=== PATIENT | male | born 1955 | race Caucasian/White ===

== ENCOUNTER 2017-07-16 09:45 | Emergency (ER) | payer OTHER ==
--- NOTE | 2017-07-16 10:20 | EDPHY ---
H & P Time Seen by Provider: 07/16/17 10:08 HPI/ROS: CHIEF COMPLAINT: Abdominal pain HISTORY OF PRESENT ILLNESS: 62-year-old male presents to the emergency department with left lower quadrant abdominal pain that began yesterday morning. Pain has been constant and now getting worse. He has vomited. Pain is in his left lower quadrant. He has never had this in the past. No flank pain. No chest pain or difficulty breathing. No vomiting. No diarrhea. No fevers or chills. No urinary symptoms. He has had a colonoscopy however he is unaware if he has had diverticular disease. No known kidney stones. Small bowel movement this morning. No melena or blood. REVIEW OF SYSTEMS: Constitutional: No fever, no chills. Eyes: No double or blurry vision. ENT: No sore throat. Respiratory: No cough, no shortness of breath. Cardiac: No chest pain. Gastrointestinal: Abdominal pain as above. Vomiting. No diarrhea. Genitourinary: No dysuria. Musculoskeletal: No neck or back pain. Skin: No rashes. Neurological: No headache. Past Medical/Surgical History: Negative Social History: Single and lives in [place] Smoking Status: Never smoked Physical Exam: General Appearance: Alert, no distress. Afebrile. No apparent distress. Eyes: Pupils equal and round. Extraocular motions are all intact. ENT: Mouth: Mucous membranes moist. Respiratory: No wheezing, rhonchi, or rales, lungs are clear to auscultation. Cardiovascular: Regular rate and rhythm. Gastrointestinal: Abdomen is soft. Tenderness with palpation in the left lower quadrant. There is no masses, rebound or guarding noted. No CVA tenderness bilaterally. Neurological: Alert and oriented x 3, cranial nerves II through XII grossly intact Skin: Warm and dry, no rashes. Musculoskeletal: Nontender to palpate along the cervical, thoracic or lumbar spine. Neck is supple. Extremities: Full range of motion and no peripheral edema. Psychiatric: Patient is oriented X 3, there is no agitation. Constitutional: Initial Vital Signs Temperature (C) 36.8 C 07/16/17 09:48 Heart Rate 62 07/16/17 09:48 Respiratory Rate 20 07/16/17 09:48 Blood Pressure 164/90 H 07/16/17 09:48 O2 Sat (%) 100 07/16/17 09:48 O2 Delivery Mode Room Air Allergies/Adverse Reactions: No Known Allergies Allergy (Verified 07/16/17 09:47) Home Medications: Medication Instructions Recorded No Medications [NO HOME 1 ea [facility] [place]12 MEDICATIONS] Tamsulosin HCl [Flomax] 0.4 mg PO DAILY #10 cap 07/16/17 Medical Decision Making - Diagnostics Imaging Results: Imaging Impressions Abdomen CT 07/16/17 10:38 Impression: 1. Suspect recently passed left ureteral calculus evidenced by minimal stranding along the proximal left ureter and minimal left pelvocaliectasis. 2. Diverticulosis of the descending and sigmoid colon. No acute diverticulitis. 3. Cholelithiasis. No biliary dilation, common bile duct stone, or pancreatitis. 4. Hepatic steatosis. Findings discussed with Emergency Department physician registered nurse first assistant, Stephanie Bullard , on July 16, 2017 at 11:20 a.m. Imaging: Discussed imaging studies w/ scallop binder Radiologist ED Course/Re-evaluation: 62-year-old male presents with left lower quadrant abdominal pain. I was concerned about possible diverticulitis. Patient has 8/10 pain, however he does not have a independent driver therefore does not want pain medication currently. CT imaging of the abdomen and pelvis reveals diverticulosis without evidence of diverticulitis. He does have mild to moderate hydronephrosis noted around the left kidney consistent with likely having just passed a kidney stone. Urinalysis was finally obtained which revealed large blood, 10-15 white blood cells and some mucus. Urine cultures pending. The patient was feeling better upon discharge. He was treated with IV Toradol as well as IV normal saline and oral Flomax. He will be discharged with oral Flomax with referral to the on-call urologist. He was instructed to follow up as an outpatient and return sooner if he felt worse in any way. Differential Diagnosis: Including but not limited to diverticulitis, bowel obstruction, kidney stone, pyelonephritis, urinary tract infection, acute appendicitis - Data Points Laboratory Results: Laboratory Results 07/16/17 10:10 07/16/17 10:10 07/16/17 07/16/17 07/16/17 11:10 10:10 10:10 WBC 11.02 10^3/uL H 10^3/uL (3.80-9.50) RBC 5.36 10^6/uL 10^6/uL (4.40-6.38) Hgb 16.8 g/dL g/dL (13.7-17.5) Hct 46.6 % % (40.0-51.0) MCV 86.9 fL fL (81.5-99.8) MCH 31.3 pg pg (27.9-34.1) MCHC 36.1 g/dL g/dL (32.4-36.7) RDW 12.4 % % (11.5-15.2) Plt Count 207 10^3/uL 10^3/uL (150-400) MPV 9.4 fL fL (8.7-11.7) Neut % (Auto) 75.7 % H % (39.3-74.2) Lymph % (Auto) 15.8 % % (15.0-45.0) [place] % (Auto) 7.0 % % (4.5-13.0) Eos % (Auto) 0.5 % L % (0.6-7.6) Baso % (Auto) 0.6 % % (0.3-1.7) Nucleat RBC Rel Count 0.0 % % (0.0-0.2) Absolute Neuts (auto) 8.35 10^3/uL H 10^3/uL (1.70-6.50) Absolute Lymphs (auto) 1.74 10^3/uL 10^3/uL (1.00-3.00) Absolute Monos (auto) 0.77 10^3/uL 10^3/uL (0.30-0.80) Absolute Eos (auto) 0.05 10^3/uL 10^3/uL (0.03-0.40) Absolute Basos (auto) 0.07 10^3/uL 10^3/uL (0.02-0.10) Absolute Nucleated RBC 0.00 10^3/uL 10^3/uL (0-0.01) Immature Gran % 0.4 % % (0.0-1.1) Immature Gran # 0.04 10^3/uL 10^3/uL (0.00-0.10) Sodium 142 mEq/L mEq/L (134-144) Potassium 3.8 mEq/L mEq/L (3.5-5.2) Chloride 106 mEq/L mEq/L (97-110) Carbon Dioxide 24 mEq/l mEq/l (22-31) Anion Gap 12 mEq/L mEq/L (8-16) BUN 15 mg/dL mg/dL (7-23) Creatinine 0.9 mg/dL mg/dL (0.7-1.3) Estimated GFR > 60 Glucose 110 mg/dL H mg/dL (70-100) Calcium 9.9 mg/dL mg/dL (8.5-10.4) Urine Color YELLOW Urine Appearance HAZY Urine pH 5.0 (5.0-7.5) Ur Specific [place] 1.025 (1.002-1.030) Urine Protein 2+ H (NEGATIVE) Urine Ketones TRACE H (NEGATIVE) Urine Blood 3+ H (NEGATIVE) Urine Nitrate NEGATIVE (NEGATIVE) Urine Bilirubin NEGATIVE (NEGATIVE) Urine Urobilinogen NEGATIVE EU EU (0.2-1.0) Ur Leukocyte Esterase 1+ H (NEGATIVE) Urine RBC 25-50 /hpf H /hpf (0-3) Urine WBC 15-25 /hpf H /hpf (0-3) Ur Epithelial Cells NONE SEEN /lpf /lpf (NONE-1+) Urine Mucus 2+ /lpf H /lpf (NONE-1+) Urine Glucose NEGATIVE (NEGATIVE) Medications Given: Discontinued Medications Sodium Chloride (Ns) 1,000 mls @ 0 mls/hr IV ONCE ONE PRN Reason: Wide Open Stop: 07/16/17 11:19 Last Admin: 07/16/17 11:25 Dose: 1,000 mls Ketorolac Tromethamine (Toradol) 30 mg IVP EDNOW ONE Stop: 07/16/17 11:19 Last Admin: 07/16/17 11:25 Dose: 30 mg Departure - Departure Disposition: Home, Routine, Self-Care Clinical Impression: Kidney stone on left side Condition: Good Instructions: Tamsulosin (By mouth), Kidney Stones (ED), Renal Colic (ED), How to Strain Your Urine (ED) Additional Instructions: Flomax daily until stone passes. Strainer urine. Return to the emergency department if you developed fever, difficulty urinating, or if you feel worse in any way. Referrals: Ishan Perez MD [Medical Doctor] - As per Instructions Prescriptions: Tamsulosin HCl [Flomax] 0.4 mg PO DAILY #10 cap
[2017-07-16 10:22] LABS: % IMMATURE GRANULYOCYTES 0.4 % (0.0-1.1); ABSOLUTE IMMATURE GRANULOCYTES 0.04 10^3/uL (0.00-0.10); ADD DIFF? NO; ADD MORPH? NO; ADD SCAN? NO; ATYPICAL LYMPHOCYTE FLAG 0 (0-99); FRAGMENT RBC FLAG 0 (0-99); HEMATOCRIT 46.6 % (40.0-51.0); HEMOGLOBIN 16.8 g/dL (13.7-17.5); LEFT SHIFT FLG 0 (0-99); LIPEMIA HEMOLYSIS FLAG 90 (0-99); MEAN CELL HEMOGLOBIN 31.3 pg (27.9-34.1); MEAN CELL HEMOGLOBIN CONCENTR. 36.1 g/dL (32.4-36.7); MEAN CELL VOLUME 86.9 fL (81.5-99.8); MEAN PLATELET VOLUME 9.4 fL (8.7-11.7); PLATELET CLUMPS FLAG 0 (0-99); PLATELET COUNT 207 10^3/uL (150-400); RED BLOOD CELL COUNT 5.36 10^6/uL (4.40-6.38); RED CELL DISTRIBUTION WIDTH 12.4 % (11.5-15.2)
[2017-07-16 10:32] LABS: ANION GAP 12 mEq/L (8-16); CALCIUM 9.9 mg/dL (8.5-10.4); CARBON DIOXIDE 24 mEq/l (22-31); CHLORIDE 106 mEq/L (97-110); CREATININE 0.9 mg/dL (0.7-1.3); GLOMERULAR FILTRATION RATE > 60; GLUCOSE 110 mg/dL (70-100); POTASSIUM 3.8 mEq/L (3.5-5.2); SODIUM 142 mEq/L (134-144)
[2017-07-16] MEDS ORDERED: IOPAMIDOL (ISOVUE-300) 100 ML BTL ONE (10:40)
[2017-07-16 11:15] LABS: COLOR YELLOW; LEUKOCYTE ESTERASE,URINE 1+ (NEGATIVE); NITRITE,URINE NEGATIVE (NEGATIVE)
[2017-07-16] MEDS ORDERED: KETOROLAC 30 MG/1 ML SDV IVP ONE (11:18)
[2017-07-16] MEDS ORDERED: NS 1,000 ML IV ONE (11:18)
[2017-07-16 11:19] LABS: MUCUS 2+ /lpf (NONE-1+); RBC,URINE 25-50 /hpf (0-3); WBC,URINE 15-25 /hpf (0-3)
[2017-07-16 11:35] VITALS: RESP 16
[2017-07-16 12:27] VITALS: BP 135/70; PULSE 81; TEMP 98.6; O2SAT 97
== END 2017-07-16 12:36 | disposition home or self-care (01) ==
PROC: 3E0337Z Introduction of Electrolytic and Water Balance Substance into Peripheral Vein, Percutaneous Approach (ICD-10-PCS; principal; 2017-07-16)
DX: N20.0 Calculus of kidney (principal); R11.10 Vomiting, unspecified
CPT/HCPCS: 96374; J1885; Q9967

== ENCOUNTER 2017-09-12 10:49 | Day surgery (SDC) | payer OTHER ==
[2017-09-12] MEDS ORDERED: LR 1,000 ML IV ONE (12:08)
--- NOTE | 2017-09-12 12:18 | PDANEPAE ---
ANE Past Medical History - Cardiovascular History Hx Hypertension: No Hx Arrhythmias: No Hx Chest Pain: No Hx Coronary Artery / Peripheral Vascular Disease: No Hx CHF / Valvular Disease: No Hx Palpitations: No Cardiovascular History Comment: HAD CP - ER- THOUGHT RT SPICEY FOOD - Pulmonary History Hx COPD: No Hx Asthma/Reactive Airway Disease: No Hx Recent Upper Respiratory Infection: No Hx Oxygen in Use at Home: No Hx Sleep Apnea: No Sleep Apnea Screening Result - Last Documented: Negative Pulmonary History Comment: DENIES SOB W STAIRS - Neurologic History Hx Cerebrovascular Accident: No Hx Seizures: No Hx Dementia: No - Endocrine History Hx Diabetes: No - Renal History Hx Renal Disorders: No - Liver History Hx Hepatic Disorders: Yes Hepatic History Comment: HEPATITIS AGE 17, UNKNOWN TYPE - Neurological & Psychiatric Hx Hx Neurological and Psychiatric Disorders: No - Cancer History Hx Cancer: No - Congenital Disorder History Hx Congenital Disorders: No - GI History Hx Gastrointestinal Disorders: Yes - Other Health History Other Health History: BOTTOM PERM BRIDGE - Chronic Pain History Chronic Pain: No - Surgical History Prior Surgeries: BONE SILICONE IMPLANT L WRIST, AGE 19. TENDON REP R ANKLE ANE Review of Systems Review of Systems: - Exercise capacity METS (RN): 4 METS ANE Patient History - Allergies Allergies/Adverse Reactions: No Known Allergies Allergy (Verified 07/16/17 09:47) - NPO status NPO Since - Liquids (Date): 09/12/17 NPO Since - Liquids (Time): 06:00 NPO Since - Solids (Date): 09/11/17 NPO Since - Solids (Time): 09:00 - Anes Hx Anes Hx: no prior problems - Smoking Hx Smoking Status: Never smoked - Family Anes Hx Family Hx Anesthesia Complications: NONE ANE Labs/Vital Signs - Vital Signs Blood Pressure: 116/69 Heart Rate: 82 Respiratory Rate: 18 O2 Sat (%): 92 Height: 167.64 cm Weight: 95.254 kg ANE Physical Exam - Airway Neck exam: FROM Mallampati Score: Class 2 Mouth exam: normal dental/mouth exam - Pulmonary Pulmonary: no respiratory distress - Cardiovascular Cardiovascular: regular rate and rhythym - ASA Status ASA Status: II ANE Anesthesia Plan Anesthesia Plan: MAC
[2017-09-12] MEDS ORDERED: PROPOFOL/EMULSION 500 MG/50 ML BOTTLE IV ONE (12:21)
[2017-09-12] MEDS ORDERED: LIDOCAINE 2% 5 ML SDV ONE (12:22)
--- NOTE | 2017-09-12 12:29 | PDGENHP ---
History & Physical Chief Complaint: phx polyps History of Present Illness: 62 year old male presents for surveillance colonosocpy. Pertinent Past, Social, Family History: PMhx: hepatitis as a kid Relevant Physical Exam: HEENT: anicteric. CV: RRR +s1s2. Lungs: CTAB. Abd: soft, nt, + bs Cardiorespiratory Assessment: ASA 1. Mall 2
[2017-09-12] MEDS ORDERED: ONDANSETRON 4 MG/2 ML VIAL IVP PRN (12:36)
[2017-09-12] MEDS ORDERED: NALOXONE HCL 0.4 MG/ML INJ IVP PRN (12:36)
--- NOTE | 2017-09-12 12:58 | POSTANESTH ---
Post Anesthetic Evaluation Cardiovascular Status: Normal, Stable Respiratory Status: Normal, Stable Level of Consciousness/Mental Status: Can Participate in Eval Pain Control: Adequate, Prn Tx Ordered Nausea/Vomiting Control: Adequate, Prn Tx Ordered Complications Possibly Related to Anesthesia: None Noted
--- NOTE | 2017-09-12 13:06 | GIREPORT ---
[facility] - Endoscopy Department Patient Name: Luther Grewal Procedure Date: 09/12/2017 11:56 AM Patient Type: Outpatient Attending MD/ ER Physician: Finn Church MD Procedure: Colonoscopy Indications: High risk colon cancer surveillance: Personal history of colonic polyps Patient Profile: 62 year old male with a history of polyps presents for surveillance colonoscopy. Providers: Finn Church MD Medicines: Monitored Anesthesia Care Complications: No immediate complications. Estimated blood loss: Minimal. Description of Procedure: After obtaining informed consent, the scope was passed under direct vis ion. Throughout the procedure, the patient's blood pressure, pulse, and oxyg en saturations were monitored continuously. The Colonoscope with irrigatio n channel was introduced through the anus and advanced to the cecum, identified by appendiceal orifice and ileocecal valve. The colonoscopy was performed without difficulty. The patient tolerated the procedure well. The quality of the bowel preparation was good. Findings: The perianal and digital rectal examinations were normal. Pertinent negatives include no palpable rectal lesions. A few diverticula were found in the sigmoid colon and descending colon. A 4 mm polyp was found in the ascending colon. The polyp was sessile. T he polyp was removed with a cold snare. Resection and retrieval were compl ete. Estimated Blood Loss: Estimated blood loss was minimal. Post Op Diagnosis: - Diverticulosis in the sigmoid colon and in the descending colon. - One 4 mm polyp in the ascending colon, removed with a cold snare. Res ected and retrieved. Recommendation: - Discharge patient to home (with escort). - Resume previous diet. - Continue present medications. - Repeat colonoscopy in 5 years for surveillance. - Use fiber, for example Citrucel, Fibercon, Konsyl or Metamucil. - Await pathology results. - Thank you for alolowing me to participate in the care of your patient . Attending Participation: I personally performed the entire procedure. Finn Church MD Finn Church MD 09/12/2017 1:05:51 PM This report has been signed electronicallyFinn Church MD Number of Addenda: 0 Note Initiated On: 09/12/2017 11:56 AM Total Procedure Duration Time 0 hours 15 minutes 44 seconds [email or web address]
[2017-09-12 13:18] VITALS: TEMP 97.9
[2017-09-12 13:36] VITALS: BP 115/75; PULSE 61; RESP 18; O2SAT 96
== END 2017-09-12 14:05 | disposition home or self-care (01) ==
LOC: FSGY 10:49
PROVIDERS: ATTEND Internal Medicine Gastroenterology
PROC: 0DJD8ZZ Inspection of Lower Intestinal Tract, Via Natural or Artificial Opening Endoscopic (ICD-10-PCS; principal; 2017-09-12 12:30)
PROC: 0DBK8ZX Excision of Ascending Colon, Via Natural or Artificial Opening Endoscopic, Diagnostic (ICD-10-PCS; principal; 2017-09-12 12:30)
DX: Z12.11 Encounter for screening for malignant neoplasm of colon (principal); D12.2 Benign neoplasm of ascending colon; Z86.010 Personal history of colon polyps
CPT/HCPCS: J2704